=== PATIENT | female | born 2000 | race African-American/Black ===

== ENCOUNTER 2020-08-07 19:59 | Emergency (ER) | payer OTHER, MEDICAID ==
[~2020-08-07] VITALS: Ht 165.1 cm; Wt 72.7 kg
[2020-08-07 22:16] VITALS: BP 118/74; PULSE 76; TEMP 97.7
== END 2020-08-07 22:17 | disposition home or self-care (01) ==
LOC: COL.ER 19:59
DX: S09.90XA Unspecified injury of head, initial encounter (principal); S20.313A Abrasion of bilateral front wall of thorax, initial encounter; S40.212A Abrasion of left shoulder, initial encounter; S40.211A Abrasion of right shoulder, initial encounter; Y04.8XXA Assault by other bodily force, initial encounter